=== PATIENT | female | born 1935 | race Caucasian/White ===

== ENCOUNTER 2022-06-15 20:25 | Emergency (ER) | payer MEDICARE, OTHER ==
[~2022-06-15] VITALS: Ht 154.9 cm; Wt 53.1 kg
[2022-06-15] MEDS ORDERED: HYDRALAZINE HCL 25 MG TAB PO ONE (20:45)
[2022-06-15] MEDS ORDERED: ACETAMINOPHEN 325 MG TAB PO ONE (20:45)
[2022-06-15] MEDS ORDERED: ACETAMINOPHEN 325 MG TAB ONE (20:53)
[2022-06-15] MEDS ORDERED: HYDRALAZINE HCL 25 MG TAB ONE (20:58)
[2022-06-15] MEDS ORDERED: IBUPROFEN400 MG PO (21:21)
[2022-06-15] MEDS ORDERED: IBUPROFEN 400 MG TAB PO ONE (22:00)
== END 2022-06-15 22:18 | disposition home or self-care (01) ==
LOC: FSED 20:28
DX: S82.092A Other fracture of left patella, initial encounter for closed fracture (principal); W01.0XXA Fall on same level from slipping, tripping and stumbling without subsequent striking against object, initial encounter; Y93.01 Activity, walking, marching and hiking; Y92.89 Other specified places as the place of occurrence of the external cause
CPT/HCPCS: 99283

== ENCOUNTER 2022-10-13 11:19 | Emergency (ER) | payer MEDICARE ==
[~2022-10-13] VITALS: Ht 162.6 cm; Wt 51.7 kg
[~2022-10-13 11:19] MED LIST: IBUPROFEN400 MG PO
[2022-10-13] MEDS ORDERED: ALBUTEROL/IPRATROPIUM 3 ML NEB NEB ONE (12:15)
[2022-10-13] MEDS ORDERED: ACETAMINOPHEN 325 MG TAB PO ONE (12:15)
[2022-10-13] MEDS ORDERED: ALBUTEROL/IPRATROPIUM 3 ML NEB ONE (12:38)
[2022-10-13] MEDS ORDERED: ACETAMINOPHEN 325 MG TAB ONE (12:38)
[2022-10-13] MEDS ORDERED: CEFDINIR300 MG PO (13:07)
[2022-10-13] MEDS ORDERED: PREDNISONE20 MG PO (13:09)
== END 2022-10-13 13:36 | disposition home or self-care (01) ==
LOC: FSED 11:29
DX: R05.9 Cough, unspecified (principal); J20.9 Acute bronchitis, unspecified; R07.89 Other chest pain; M31.5 Giant cell arteritis with polymyalgia rheumatica; I10 Essential (primary) hypertension; E78.5 Hyperlipidemia, unspecified
CPT/HCPCS: 71046; 83518; 87400; 99283